=== PATIENT | male | born 1955 | race Caucasian/White ===

== ENCOUNTER 2019-05-17 20:55 | Emergency (ER) | payer BC, OTHER ==
[~2019-05-17] VITALS: Ht 182.9 cm; Wt 111.7 kg
[2019-05-17 20:59] VITALS: BP 182/93
[2019-05-17] MEDS ORDERED: OMEP20TA62 PO (21:04)
[2019-05-17] MEDS ORDERED: ATOR20TA PO (21:04)
[2019-05-17] MEDS ORDERED: ASPI-496 PO (21:04)
[2019-05-17] MEDS ORDERED: OXYMETAZOLINE NASAL SPRAY 0.05%,30ML ONE (21:18)
[2019-05-17] MEDS ORDERED: OXYMETAZOLINE NASAL SPRAY 0.05%, 15ML NAS ONE (21:30)
--- NOTE | 2019-05-17 22:23 | NUR ---
Afrin and gauze did not stop bleeding after pa admin. Pa at bedside to pack nostril.
[2019-05-21] MEDS ORDERED: ASPI-496 PO (11:53)
[2019-05-21] MEDS ORDERED: SIMV20TA19 PO (11:53)
== END 2019-05-17 23:24 | disposition home or self-care (01) ==
LOC: ED 22:06
DX: R04.0 Epistaxis (principal); E78.00 Pure hypercholesterolemia, unspecified; K21.9 Gastro-esophageal reflux disease without esophagitis
CPT/HCPCS: 30901; 99284